=== PATIENT | female | born 1950 ===

== ENCOUNTER 2019-05-30 10:40 | Day surgery (SDC) | payer MEDICARE ==
[2019-05-29 12:22] LABS: HEMATOCRIT 32.3 % (36.0-48.0); MCH 29.9 pg (26.0-34.0); MCHC 34.1 g/dL (31.0-37.0); MCV 87.8 fL (80.0-100.0); MEAN PLATELET VOLUME 9.9 fL (7.4-10.4); RBC 3.68 10x6/uL (4.00-5.40); WBC 4.9 10x3/uL (4.8-10.8)
[2019-05-29 12:26] LABS: APTT 27.3 SECONDS (22.8-39.4); INR 1.07 (0.85-1.17); PROTIME 13.4 SECONDS (11.6-15.0)
[~2019-05-30] VITALS: Ht 175.3 cm; Wt 81.6 kg
[~2019-05-30 10:40] MED LIST: BETAPACE160 MG PO; CELEXA20 MG PO; COLACE100 MG PO; COZAAR50 MG PO; KEPPRA250 MG PO; LIPITOR20 MG PO; OXYBUTYNIN CHLOR5 MG PO; PEPCID AC20 MG PO; SINGULAIR10 MG PO; XARELTO15 MG PO
[2019-05-30 11:15] VITALS: BP 175/94; Ht 175.3 cm; Wt 81.6 kg
--- NOTE | 2019-05-30 18:12 | NUR ---
1700-DISCHARGE CRITERIA MET. REMOVED IV FROM LEFT HAND WITH CATH INTACT.DISPOSED INTO SHARPS, COVERED SITE WITH BANDAID. DRESSING TO LLE CDI. DENIES PAINN. REVIEWED POST OPERATIVE INSTRUCTIONS WITH PT AND SON. VERBALIZED UNDERSTANDING WITHOUT QUESTIONS OR CONCERNS. ASSISTED PT IN DRESSING,ESCORTED OUT VIA W/C WITH SON AWAITING TO DRIVE.
--- NOTE | 2019-06-09 14:32 | OP ---
PATIENT NAME: ESTEBAN JAVIER MEDICAL RECORD: [id number] :54 LOCATION:D.OPS ADMISSION DATE: SURGEON: LADARIUS ORTEGA DATE OF OPERATION: 05/30/2019 SURGEON: Ladarius Ortega DPM PREOPERATIVE DIAGNOSES: 1. Hammertoe deformity, second toe, right foot. 2. Hammertoe deformity, third toe, right foot. 3. Hammertoe deformity, fourth toe, right foot. POSTOPERATIVE DIAGNOSES: 1. Hammertoe deformity, second toe, right foot. 2. Hammertoe deformity, third toe, right foot. 3. Hammertoe deformity, fourth toe, right foot. PROCEDURE: 1. Arthrodesis, second toe, right foot. 2. Arthrodesis, third toe, right foot. 3. Arthrodesis fourth toe, right foot. ANESTHESIA: Local with monitored anesthesia care. HEMOSTASIS: Pneumatic ankle tourniquet inflated to 250 mmHg. ESTIMATED BLOOD LOSS: Minimal. MATERIALS: A 3-0 Vicryl and 4-0 nylon. INJECTABLES: 20 mL of 0.5% bupivacaine plain. The patient has longstanding history of pain associated with hammertoe deformity of the right foot. She has tried wider shoes to no avail. We have discussed the proposed procedures. Risks and benefits were discussed. Complications were reviewed. All questions were answered. She was appropriately consented for the above-mentioned procedures. The patient was taken to the operating room and placed on the operating table in a supine position. A timeout was called with Dr. Ortega, who identified the patient, the surgical site, and the surgery to be performed. Once appropriate anesthesia was obtained, the foot was prepped and draped in the usual aseptic manner. The pneumatic ankle tourniquet was inflated to 250 mmHg on the well-padded right ankle. PROCEDURE NUMBER 1: Arthrodesis second toe, right foot. Attention was directed to the dorsal aspect of the second toe of the right foot where a 3-cm linear incision was made. This incision was carried deep to soft tissue with care being taken to retract all vital neurovascular structures. All bleeders were cauterized along the way. The extensor tendon was then transected at the level of the proximal interphalangeal joint. All soft tissue attachments were freed from the head of the proximal phalanx, thus exposing the head of this OPERATIVE REPORT [id number] HARDAGE,ESTEBAN bone. Utilizing a sagittal saw, the head of this proximal phalanx was resected. All cartilage was then removed from the base of the middle phalanx. Next, utilizing manufacture's recommended technique, one 2.5 mm screw was placed across the arthrodesis site. Proper placement of the screw was confirmed via C-arm. The surgical site was then irrigated with copious amounts of normal sterile saline via bulb syringe. The extensor tendon was then reapproximated and coapted using 3-0 Vicryl. The subq was then reapproximated and coapted using 3-0 Vicryl. Skin was then reapproximated with 4-0 nylon. PROCEDURE #2: Arthrodesis, third toe, right foot. The exact same procedure as procedure #1 ((arthrodesis, second toe, right foot) was performed on the third toe of the right foot without exception. PROCEDURE #3: Arthrodesis fourth toe, right foot. The exact procedure that was performed on toes 2 and 3 of the right foot was performed on the fourth toe of the right foot without exception. Dressing consisting of Xeroform, 4 x 4's, Kerlix, and Anand bandage was applied to the right foot. The pneumatic ankle tourniquet was deflated and capillary refill time is immediate to all digits of the right foot. The patient will be discharged home with instructions to ice and elevate the right foot. She has rented a [employer] to further offload the foot. She has my cell phone number for any after difficulties. We will follow up with her next week. TRANSINT:[id number] Voice Confirmation ID: [id number] DOCUMENT ID: [id number] LADARIUS ORTEGA at 1432 CC: [id number] DICTATION DATE: 05/30/19 1521 [employer] DIES LOADER: 05/31/19 0118 [facility] 05/30/19 [id number] [place] [address]
== END 2019-05-30 17:00 | disposition home or self-care (01) ==
LOC: D.OPS 10:40 → D.PAN 12:45 → D.OPS 12:45
PROVIDERS: Anesthesiology; ATTEND Podiatrist
DX: M20.41 Other hammer toe(s) (acquired), right foot (principal)